=== PATIENT | female | born 1985 | race Caucasian/White ===

== ENCOUNTER 2018-11-25 19:08 | Emergency (ER) | payer SELFPAY ==
[~2018-11-25] VITALS: Ht 160 cm; Wt 65.8 kg
[2018-11-25 19:19] VITALS: BP 141/95
[2018-11-25] MEDS ORDERED: ACET-704 PO (19:23)
[2018-11-25] MEDS ORDERED: CLIN300C8 PO (19:23)
[2018-11-25] MEDS ORDERED: LIDO15SO2 MM (19:23)
--- NOTE | 2018-11-25 19:24 | PHYS DOC ---
Adult General Chief Complaint Chief Complaint: DENTAL PROBLEM HPI HPI Patient is a 33-year-old female who presents with left lower dental pain for 1 day. Patient states that she is gotten some Orajel and has been taking ibuprofen for the pain. She states that right now the pain is about an 8 out of 10 but states that at its worse it's a 10 out of 10. She denies any recent dental trauma and is not aware of any filling that is fallen out. She states the pain is worsened if she tries to eat/chew. Review of Systems Review of Systems Constitutional: Denies fever or chills [] Eyes: Denies change in visual acuity, redness, or eye pain [] HENT: Positive dental pain[] Respiratory: Denies cough or shortness of breath [] Cardiovascular: No additional information not addressed in HPI [] Physical Exam Physical Exam Constitutional: Well developed, well nourished, no acute distress, non-toxic appearance. [] HENT: Normocephalic, atraumatic, dentition demonstrates mild caries diffusely. [ ] Neck: Normal range of motion, no tenderness, supple, cervical lymphadenopathy is present bilaterally. [] Cardiovascular: Regular rate and rhythm[] Lungs & Thorax: Bilateral breath sounds clear to auscultation [] EKG EKG [] Radiology/Procedures Radiology/Procedures [] Course & Med Decision Making Course & Med Decision Making Pertinent Labs and Imaging studies reviewed. (See chart for details) [] Dragon Disclaimer Dragon Disclaimer This electronic medical record was generated, in whole or in part, using a voice recognition dictation system. Departure Departure Impression: Primary Impression: Pain due to dental caries Disposition: 01 HOME, SELF-CARE Condition: STABLE Patient Instructions: Dental Caries, Dental Pain Scripts Lidocaine HCl (Lidocaine HCl Viscous) 15 Ml Solution 1 ML MM Q2HR PRN for dental pain, #100 ML Prov: RAMANDEEP DILLARD Jr. DO 11/25/18 Clindamycin Hcl (CLINDAMYCIN HCL) 300 Mg Capsule 300 MG PO QID for 10 Days, #40 CAP Prov: RAMANDEEP DILLARD Jr. DO 11/25/18 Acetaminophen With Codeine (TYLENOL WITH CODEINE #3 TABLET) 1 Each Tablet 1 TAB PO PRN Q6HRS PRN for PAIN, #12 TAB Prov: RAMANDEEP DILLARD Jr. DO 11/25/18 RAMANDEEP DILLARD Jr. DO Nov 25, 2018 19:24
== END 2018-11-25 19:45 | disposition home or self-care (01) ==
LOC: ER 19:08
DX: K02.9 Dental caries, unspecified (principal)
CPT/HCPCS: 99283